=== PATIENT | female | born 1950 | race Asian ===

== ENCOUNTER → 2017-08-19 | Day surgery (SDC) | payer BC ==
[2017-08-14 16:43] LABS: BASOPHILS % 0.6 % (0.0-1.0); EOSINOPHILS # (AUTO) 0.1 (0.0-0.4); EOSINOPHILS % 1.1 % (0.0-6.0); HEMATOCRIT 35.9 % (34.2-44.1); HEMOGLOBIN 12.2 g/dL (12.0-16.0); LYMPHOCYTES # (AUTO) 3.2 (1.0-3.2); LYMPHOCYTES % 45.8 % (18.0-39.1); MEAN CORPUSCULAR VOLUME 91.3 fL (81-99); MONOCYTES # (AUTO) 0.6 (0.2-0.8); MONOCYTES % 8.3 % (4.4-11.3); NEUTROPHILS # (AUTO) 3.1 (2.1-6.9); NEUTROPHILS % 43.9 % (38.7-80.0); PLATELET COUNT 292 x10e3/uL (140-360); RED BLOOD COUNT 3.93 x10e6/uL (3.6-5.1); RED CELL DISTRIBUTION WIDTH 11.9 % (11.7-14.4)
[~2017-08-19] MED LIST: ALIGN4 MG PO; CENTRUM SILVER1 EAC1; FENOFIBRATE145 MG PO; FENTANYL CITRATE/PF 100MCG/2 ML INJ ONE; HYOSCYAMINE SULFATE 0.5 MG/ML AMP ONE; MEGA RED; MIDAZOLAM HCL 2 MG/2 ML VIAL ONE; PROPOFOL IV EMULSION 10 MG/ML 50 ML VIAL ONE; VITAMIN C PO; VITAMIN D3 PO
--- NOTE | 2017-08-19 10:12 | Operative Report ---
DATE OF PROCEDURE: August 19, 2017 REFERRING PHYSICIAN: Dr. Parish Rogers. PROCEDURES PERFORMED 1. Esophagogastroduodenoscopy with biopsies. 2. Colonoscopy with polypectomy. INDICATIONS FOR EGD: Acid reflux. INDICATIONS FOR COLONOSCOPY: Colorectal cancer screening. Personal history of colon polyps. MEDICATION: Patient was done under MAC. Please see anesthesiologist's note. PROCEDURE: With the patient in the left lateral decubitus position, the flexible fiberoptic Olympus gastroscope was introduced into the esophagus under direct visualization without any difficulty. There was some patchy erythema noted in the distal esophagus. The scope was then advanced with ease into the stomach. Mucosa overlying the antrum and the body revealed some diffuse erythema and low-grade to moderate edema. Also an erosion was noted without active bleeding. Biopsies were obtained and sent to stain for H. pylori. Pylorus appeared to be of normal contour and shape. It was intubated with ease, and the scope was advanced all the way to the 2nd portion of the duodenum. The scope was then withdrawn slowly. Mucosa overlying the proximal 2nd portion and the duodenal bulb appeared to be within normal limits. The scope was then withdrawn back into the stomach and retroflexed, and mucosa overlying the fundus and the cardia appeared to be within normal limits. The scope was then straightened out. The stomach was decompressed. Scope was subsequently withdrawn. Patient tolerated the procedure well. IMPRESSION 1. Distal esophagitis. 2. Gastritis, erosive. Biopsies obtained and sent to stain for H. pylori. PLAN: Follow up histology. Initiate Protonix 40 mg 1 p.o. q.a.m. a.c. The patient was then turned around. After adequate lubrication of the anal canal, a flexible fiberoptic Olympus colonoscope was inserted into the rectum with ease and advanced all the way to the cecum. It was then withdrawn slowly. The mucosa overlying the cecum appeared to be within normal limits. A minute polyp was hot biopsied from the proximal ascending colon. The rest of the ascending, transverse, descending, sigmoid and rectum appeared to be within normal limits. The scope was then retroflexed into the distal rectum, and moderate-size internal hemorrhoids were noted, none of which was actively bleeding. The scope was then straightened out. It was subsequently withdrawn. Patient tolerated the procedure well. IMPRESSION 1. Ascending colon polyp, hot biopsied. 2. Internal hemorrhoids, none actively bleeding. PLAN: Follow up histology. Initiate high-fiber, low-fat diet. Initiate high-fiber supplement. Patient will need a followup colonoscopy in 5 years. Job#: [id number] cc:PARISH ROGERS MD
== END | disposition home or self-care (01) ==
LOC: OR 07:14
PROVIDERS: ATTEND Internal Medicine Gastroenterology
DX: K21.0 Gastro-esophageal reflux disease with esophagitis (principal); K63.5 Polyp of colon; K25.9 Gastric ulcer, unspecified as acute or chronic, without hemorrhage or perforation; K64.8 Other hemorrhoids; Z01.810 Encounter for preprocedural cardiovascular examination; Z01.812 Encounter for preprocedural laboratory examination
CPT/HCPCS: 36415; 43239; 45384; 85025; 93005; J1980; J2250

== ENCOUNTER → 2018-10-28 | Outpatient (CLI) | payer BC ==
[~2018-10-28] MED LIST changes: -FENTANYL CITRATE/PF 100MCG/2 ML INJ ONE; -HYOSCYAMINE SULFATE 0.5 MG/ML AMP ONE; -MIDAZOLAM HCL 2 MG/2 ML VIAL ONE; -PROPOFOL IV EMULSION 10 MG/ML 50 ML VIAL ONE
--- NOTE | 2018-10-28 09:09 | Diagnostic Imaging Report ---
Examination: MRI BRAIN WITHOUT CONTRAST History: Headaches. Comparison studies: None Technique: Sagittal T2; axial DWI, FLAIR, GRE or SWI, T1, Coronal FLAIR. Intravenous contrast: None Findings: Scalp: No abnormal signal. No masses. Bone marrow: Normal in signal intensity. Brain volume: Adequate for age. No volume loss. Ventricles: Normal in size and configuration. No hydrocephalus. Extra-axial spaces: No abnormalities. Parenchyma: There are scattered punctate areas of T2/FLAIR hyperintensity in the periventricular and subcortical white matter, nonspecific. No masses, hemorrhage, or acute vascular insults. Suprasellar and sellar region: No abnormalities. Craniocervical junction: No abnormalities. The foramen magnum is patent. No Chiari malformations. Vessels: Normal flow-voids in the arteries and sinuses. Additional findings:None. IMPRESSION: No acute intracranial abnormalities. Mild chronic microvascular ischemic change. Signed by: Dr. Akiko Rea M.D. on 10/28/2018 9:06 AM
== END ==
LOC: MRI 07:33
PROVIDERS: ATTEND Internal Medicine
DX: R51 Headache (principal)
CPT/HCPCS: 70551

== ENCOUNTER → 2019-01-20 | Outpatient (CLI) | payer BC ==
--- NOTE | 2019-01-20 15:51 | Diagnostic Imaging Report ---
Examination: MRA HEAD WITHOUT CONTRAST History: Headaches. Comparison studies: None Technique: 3-D [id number] MR angiogram of the intracranial circulation was obtained. MIP images of the arteries were isolated into anterior and posterior intracranial circulations, 180 degree projections. Sagittal and coronal MPR images, and axial source images are available for evaluation. Findings: Internal carotid arteries: Patent. Anterior cerebral arteries: Patent bilateral A1 and A2 segments. Hypoplastic left A1 segment. Middle cerebral arteries: Patent M1 and M2 segments. Vertebrobasilar circulation: Patent. Posterior cerebral arteries: Patent P1 and P2 segments. Anatomical variants: Anterior communicating arteries: Patent. Posterior communicating arteries: Not visualized. Vertebral arteries:Codominant. IMPRESSION: No intracranial arterial stenosis or occlusion or vascular malformation. Signed by: Dr. Akiko Rea M.D. on 01/20/2019 3:48 PM
--- NOTE | 2019-01-20 15:53 | Diagnostic Imaging Report ---
Examination: MRV HEAD WITHOUT CONTRAST History:Headaches. Chronic tension-type headache. Comparison studies:None Technique: 3-D [id number] intracranial MR venogram was obtained. Axial source images, MIP images and sagittal and coronal MPR images are available for evaluation Findings: Superior sagittal sinus: Patent Straight sinus: Patent Transverse sinuses: Patent Sigmoid sinuses: Patent Jugular veins:Patent The jugular system is codominant IMPRESSION: No intracranial venous stenosis or occlusion. Signed by: Dr. Akiko Rea M.D. on 01/20/2019 3:49 PM
== END ==
LOC: MRI 13:47
PROVIDERS: ATTEND Internal Medicine
DX: G44.221 Chronic tension-type headache, intractable (principal)
CPT/HCPCS: 70544

== ENCOUNTER → 2020-04-04 | Outpatient (CLI) | payer BC | LOC: RAD 12:06 | PROVIDERS: ATTEND Internal Medicine | DX: M25.552 Pain in left hip (principal) ==

== ENCOUNTER → 2022-03-19 | Outpatient (CLI) | payer BC | LOC: RAD 11:41 | PROVIDERS: ATTEND Internal Medicine | DX: J40 Bronchitis, not specified as acute or chronic (principal) | CPT/HCPCS: 71046 ==

== ENCOUNTER → 2022-07-04 | Outpatient (CLI) | payer BC ==
[~2022-07-04] MED LIST changes: +IOPAMIDOL 370 MG/ML 100 ML INFUS..BTL INJ ONE
[2022-07-04 09:00] LABS: CREATININE, SERUM 0.73 mg/dL (0.57-1.11)
== END ==
LOC: CT 07:56
PROVIDERS: ATTEND Internal Medicine
DX: R10.10 Upper abdominal pain, unspecified (principal)
CPT/HCPCS: 36415; 74176; 82565; 84520; Q9967

== ENCOUNTER 2024-01-27 12:05 | Emergency (ER) | payer BC ==
[~2024-01-27] VITALS: Ht 149.9 cm; Wt 48.1 kg
[~2024-01-27 12:05] MED LIST changes: -IOPAMIDOL 370 MG/ML 100 ML INFUS..BTL INJ ONE
[2024-01-27 12:10] VITALS: PULSE 72; RESP 18; TEMP 98.3
[2024-01-27] MEDS: KETOROLAC TROMETHAMINE 30 MG/ML VIAL IV ONE (12:40)
[2024-01-27] MEDS: ONDANSETRON HCL INJ 2MG/ML 2ML 2 MG/ML VIAL IV ONE (12:40)
[2024-01-27] MEDS: FAMOTIDINE 20 MG/2 ML VIAL IV ONE (12:41)
[2024-01-27] MEDS: LACTATED RINGER'S 1,000 ML INJ ONE (12:41)
[2024-01-27] MEDS ORDERED: IOPAMIDOL 370 MG/ML 100 ML INFUS..BTL INJ ONE (13:27)
[2024-01-27] MEDS ORDERED: OMEPRAZOLE40 MG PO (13:45)
[2024-01-27] MEDS ORDERED: DICYCLOMINE HCL20 MG PO (13:45)
[2024-01-27] MEDS ORDERED: CIPRO250 MG PO (13:45)
[2024-01-27 13:49] VITALS: BP 138/62; PULSE 76; RESP 17; TEMP 98.6; O2SAT 99
== END 2024-01-27 13:51 | disposition home or self-care (01) ==
LOC: FSED 12:12
DX: R10.30 Lower abdominal pain, unspecified (principal); K52.9 Noninfective gastroenteritis and colitis, unspecified; I10 Essential (primary) hypertension; E78.5 Hyperlipidemia, unspecified; E03.9 Hypothyroidism, unspecified
CPT/HCPCS: 36415; 74177; 80048; 80076; 81003; 83690; 85025; 99284; J1885; J2405; J7121; Q9967

== ENCOUNTER → 2024-04-22 | Outpatient (REF) | payer BC ==
[~2024-04-22] MED LIST changes: +CIPRO250 MG PO; +DICYCLOMINE HCL20 MG PO; +OMEPRAZOLE40 MG PO
== END ==
LOC: US 14:20
PROVIDERS: ATTEND Internal Medicine
DX: E03.9 Hypothyroidism, unspecified (principal); E04.9 Nontoxic goiter, unspecified; R13.10 Dysphagia, unspecified
CPT/HCPCS: 76536

== ENCOUNTER → 2024-04-26 | Outpatient (REF) | payer BC | LOC: RESP 10:47 → EDSTATUS 11:00 | PROVIDERS: ATTEND Internal Medicine | DX: R06.00 Dyspnea, unspecified (principal); J41.0 Simple chronic bronchitis | CPT/HCPCS: 94060; 94727; 94729 ==